=== PATIENT | male | born 1965 | race Caucasian/White ===

== ENCOUNTER 2018-11-07 12:44 | Emergency (ER) | payer MEDICARE, OTHER ==
[~2018-11-07] VITALS: Ht 177.8 cm; Wt 94.0 kg
[2018-11-07 14:00] LABS: ALANINE AMINOTRANSFERASE 27 U/L (12-78); ALBUMIN 3.4 g/dL (3.4-5.0); ANION GAP 7 mmol/L (5-15); CALCIUM 8.6 mg/dL (8.5-10.1); CHLORIDE 110 mmol/L (98-107); SALICYLATE LEVEL 5.4 mg/dL (2.8-20.0)
--- NOTE | 2018-11-07 14:01 | NUR ---
PT STATES HE HAS BEEN FEELING SOB AND THAT VOICES ARE TELLING HIM TO CUT HIS THROAT. PT COOPERATIVE, PLACING CLOTHES IN BAG AND GETTING IN GOWN. O2 SATURATION 94 PERCENT ON RA
[2018-11-07 14:02] LABS: BASOPHILS # (AUTO) 0.05 x10^3/uL (0-0.1); BASOPHILS % (AUTO) 1 % (0-1); EOSINOPHILS # (AUTO) 0.16 x10^3/uL (0-0.4); EOSINOPHILS % (AUTO) 2 % (1-7); LYMPHOCYTES # (AUTO) 1.77 x10^3/uL (1-3.4); LYMPHOCYTES % (AUTO) 26 % (22-44); MD NO; MEAN CORPUSCULAR HEMOGLOBIN 31.4 pg (27.5-34.5); MEAN CORPUSCULAR HGB CONC 33.4 g/dL (33.2-36.2); MEAN CORPUSCULAR VOLUME 94.1 fL (81-97); MEAN PLATELET VOLUME 8.2 fL (7.4-10.4); MONOCYTES # (AUTO) 0.44 x10^3/uL (0.2-0.8); MONOCYTES % (AUTO) 6 % (2-9); NEUTROPHILS # (AUTO) 4.44 x10^3/uL (1.8-6.8); NEUTROPHILS % (AUTO) 65 % (42-75); PLATELET COUNT 310 x10^3/uL (130-400); RED CELL DISTRIBUTION WIDTH 14.5 % (9.4-14.8)
[2018-11-07 14:03] LABS: ALKALINE PHOSPHATASE 84 U/L (45-117); BILIRUBIN,TOTAL 0.4 mg/dL (0.2-1.0); TOTAL PROTEIN 6.7 g/dL (6.4-8.2)
--- NOTE | 2018-11-07 14:10 | NUR ---
EQUIPMENT AND SUPPLIES SECURED BEHIND CLOSED DOOR
--- NOTE | 2018-11-07 14:56 | NUR ---
PT SPEAKING WITH TELEPSYCHIATRIST. PT TELLING HER THAT HE IS NEWLY HOMELESS AND THAT HE HAS BEEN DEPRESSED AND FEELING SUICIDAL ALONG WITH HEARING VOICES. STATES HE HAD THAT PROBLEM WHEN HE WAS A CHILD.
--- NOTE | 2018-11-07 17:53 | NUR ---
LUNCH RN: PT SLEEPING IN BED, RR EVEN AND UNLABORED. NADN. ALL LABS BACK OR PENDING, AWAITING PSYCH EVAL AT THIS TIME
--- NOTE | 2018-11-07 18:30 | NUR ---
LYING IN GURNEY, ROCKING HIMSELF BACK AND FORTH. PT REMAINS IN VIEW OF PT
[2018-11-07 18:31] LABS: AMPHETAMINE SCREEN, URINE Negative (Negative); BARBITURATE SCREEN, URINE Negative (Negative); BENZODIAZEPINE SCREEN, URINE Negative (Negative); CANNABINOID SCREEN, URINE Positive (Negative); COCAINE SCREEN, URINE Negative (Negative); METHADONE SCREEN, URINE Negative (Negative); OPIATE SCREEN, URINE Negative (Negative)
[2018-11-07 19:24] VITALS: BP 111/55
--- NOTE | 2018-11-07 19:27 | NUR ---
PT STATES HE FEELS SAFER HERE THAN ON THE STREETS. PROVIDED. DINNER
--- NOTE | 2018-11-07 20:10 | NUR ---
TP RN: PACKET HAS BEEN FAXED TO ALL FACILITIES. [facility] CALLED FOR REPORT FROM RN AT THIS TIME. STILL AWAITING CONFIRMATION.
--- NOTE | 2018-11-07 20:10 | NUR ---
INFORMED BY [facility] THAT DR KEVIN HAS ACCEPTED PT. REPORT TO EDGAR.
--- NOTE | 2018-11-07 20:17 | NUR ---
STEFFEN RN: FAX RECEIVED BACK FROM [facility], [facility], [facility], [facility], [facility] AND [facility].
[2018-11-07] MEDS ORDERED: DOCUSATE 100 MG CAPSULE PO PRN (20:30)
[2018-11-07] MEDS ORDERED: OLANZAPINE 5 MG TABLET PO PRN (20:30)
[2018-11-07] MEDS ORDERED: ACETAMINOPHEN 325 MG TABLET PO PRN (20:30)
[2018-11-07] MEDS ORDERED: OLANZAPINE 10 MG INJ IM PRN (20:30)
--- NOTE | 2018-11-07 20:30 | NUR ---
PT AMBULATED APPROXIMATELY 40 FEET WITHOUT WALKER, SLIGHT BENT FORWARD. PT STATES THAT IS FAR HE FEELS COMFORTABLE AMBULATING. PT STATES HE USES THE WALKER FOR BACK PROBLEMS. EDGAR [facility] MADE AWARE
--- NOTE | 2018-11-07 20:34 | NUR ---
[facility] ([facility]) aware of pt and awaiting admit order from psychiatrist.
--- NOTE | 2018-11-07 20:44 | NUR ---
SPOKE TO DANNY WITH [facility]. TRANSPORT SET UP, ETA 2115. TRANSPORT REQUEST ALSO FAXED TO [facility] DISPATCH.
[2018-11-07] MEDS ORDERED: OLANZAPINE 5 MG TABLET PO SCH (21:00)
--- NOTE | 2018-11-07 21:07 | NUR ---
TP RN: EDGAR RN AT [facility] UPDATED THAT PT. WILL GO TO [facility].
--- NOTE | 2018-11-07 21:09 | NUR ---
REPORT TO MONSE WOOTEN
--- NOTE | 2018-11-07 21:10 | NUR ---
REPORT RECEIVE, POC DISCUSSED, CARE ASSUMED. PT RESTING QUIETLY, NAD. PT TO BE ADMITTED TO 381. DHARMESH RN GAVE REPORT TO ACCEPTING FLOOR.. WAITING FOR TRANSPORT.
--- NOTE | 2018-11-07 21:15 | NUR ---
REPORT TO JASON WOOTEN. PT TO BE GOING TO [facility].
== END 2018-11-08 07:07 ==
LOC: ED 14:22 → EDIP 18:50 → UNDOADMIN 18:50 → ED 11-08 07:07
DX: F32.3 Major depressive disorder, single episode, severe with psychotic features (principal)
CPT/HCPCS: 36415; 71045; 80053; 80307; 85025; 93005; 99285